=== PATIENT | female | born 1990 | race African-American/Black ===

== ENCOUNTER 2022-03-30 21:46 | Outpatient (REF) | payer SELFPAY ==
[2022-03-31 14:59] LABS: Chlamydia Result Negative (Negative); GC Result Negative (Negative)
== END 2022-03-30 21:47 | disposition home or self-care (01) ==
LOC: LBN 21:46
PROVIDERS: Visit Provider Nurse Practitioner Women's Health
DX: N89.8 Other specified noninflammatory disorders of vagina (principal); Z11.3 Encounter for screening for infections with a predominantly sexual mode of transmission
CPT/HCPCS: 87491; 87591; 87480; 87510; 87660

== ENCOUNTER 2022-04-01 02:33 | Outpatient (CLI) | payer SELFPAY | END 2022-04-01 02:34 | disposition home or self-care (01) | LOC: LBO 02:33 | PROVIDERS: Visit Provider Nurse Practitioner Women's Health ==

== ENCOUNTER 2022-12-06 17:15 | Outpatient (REF) | payer SELFPAY ==
[2022-12-07 12:17] LABS: Chlamydia Result Negative (Negative); GC Result Negative (Negative)
== END 2022-12-06 17:16 | disposition home or self-care (01) ==
LOC: LBN 17:15
PROVIDERS: Visit Provider Nurse Practitioner Women's Health
DX: N76.0 Acute vaginitis (principal); Z11.3 Encounter for screening for infections with a predominantly sexual mode of transmission
CPT/HCPCS: 87491; 87591; 87480; 87510; 87660